=== PATIENT | male | born 1995 | race Caucasian/White ===

== ENCOUNTER 2017-10-07 14:43 | Emergency (ER) | payer SELFPAY ==
[~2017-10-07] VITALS: Ht 162.6 cm; Wt 59.0 kg
[2017-10-07 14:45] VITALS: BP 119/71
== END 2017-10-07 16:12 | disposition home or self-care (01) ==
LOC: ER 15:02
DX: L70.9 Acne, unspecified (principal); F17.200 Nicotine dependence, unspecified, uncomplicated; Z59.0 Homelessness
CPT/HCPCS: 99281